=== PATIENT | male | born 1945 | race Caucasian/White ===

== ENCOUNTER 2016-05-01 16:22 | Emergency (ER) | payer MEDICARE ==
[2016-05-01] MEDS ORDERED: ALBUTEROL NEB 2.5 MG/3 ML VIAL.NEB NEB ONE (16:56)
[2016-05-01] MEDS ORDERED: SODIUM CHLORIDE 0.9% 500 ML ONE (17:05)
--- NOTE | 2016-05-01 17:35 | RAD ---
EXAMINATION:CHEST - 2 VIEWS CLINICAL INDICATION: Fever and shortness of breath. COMPARISON: Prior examination dated 02/03/2014. FINDINGS: The cardiomediastinal silhouette is unaltered from the prior examination. Aortic ectasia is similar. Volume loss with relative right mediastinal shift is again noted. There is no adenopathy identified. There is no pleural effusion. Coarsened reticular nodular opacities within the right upper lung zone and left midlung zone are similar. No superimposed acute infiltrate is identified. The osseous structures are unremarkable for age. IMPRESSION: Stable fibrotic changes of the lungs bilaterally with no superimposed acute process identified.
[2016-05-01 17:36] LABS: ALBUMIN 3.9 gm/dL (3.5-5.7); CALCIUM 9.1 mg/dL (8.6-10.3); MAGNESIUM 1.9 mg/dL (1.9-2.7)
[2016-05-01 17:37] LABS: ABSOLUTE NEUTROPHIL COUNT 7.5 K/mm3 (1.8-7.7); BASO # 0.1 K/mm3 (0.0-0.2); BASO % 0.6 % (0.2-1.0); EOS % 0.3 % (0.9-2.9); HEMATOCRIT 38.6 % (32.0-52.0); HEMOGLOBIN 13.1 gm/l (14.0-18.0); IMM NEUT% 0.3 % (0-1); LYMPH # 0.8 (1.0-4.8); LYMPH % 8.2 % (15-45); MEAN CELL VOLUME 85.4 fl (80.0-94.0); MEAN CORPUSCULAR HGB CONC 33.9 g/dl (33.0-37.0); MEAN PLATELET VOLUME 11.5 fl (7.4-10.4); MONO # 1.2 (0.0-0.8); MONO % 12.8 % (4-12); NEUT % 77.8 % (43-75); PLATELET COUNT 246 K/mm3 (130-400); RED CELL DISTRIBUTION WIDTH 14.7 % (11.5-14.5)
[2016-05-01 17:56] LABS: D-DIMER 0.48 mg/L FEU (0.20-0.50); INR 2.07; PROTHROMBIN TIME 22.6 SECONDS (9.3-11.4)
[2016-05-01 17:57] LABS: CKMB ISOENZYME 1.3 ng/ml (0.6-6.3)
[2016-05-01 17:59] LABS: TROPONIN I 0.09 ng/ml (0.0-0.06)
[2016-05-01 18:58] LABS: SPECIFIC GRAVITY 1.015 (1.001-1.030); URINE BILIRUBIN NEGATIVE (NEGATIVE); URINE BLOOD 4+ (NEGATIVE); URINE GLUCOSE (UA) NEGATIVE (NEGATIVE); URINE LEUKOCYTE ESTERASE TRACE (NEGATIVE); URINE NITRITE NEGATIVE (NEGATIVE); URINE PROTEIN 2+ (NEGATIVE); URINE UROBILINOGEN 1 mg/dL (0-1 mg/dl)
[2016-05-01] MEDS ORDERED: CEFTRIAXONE 1 GRAM DUPLEX 50 ML IV ONE ×2 (19:02→19:04)
[2016-05-01 19:08] LABS: URINE APPEARANCE CLOUDY; URINE COLOR BROWN
[2016-05-01 19:14] LABS: URINE RBC 20-30 /hpf
[2016-05-01 19:15] LABS: URINE AMORPHOUS SEDIMENT MODERATE; URINE BACTERIA 1+
== END 2016-05-01 20:04 | disposition short-term general hospital (02) ==
LOC: ED 16:22
DX: R09.02 Hypoxemia (principal); R50.9 Fever, unspecified; I12.0 Hypertensive chronic kidney disease with stage 5 chronic kidney disease or end stage renal disease; N18.6 End stage renal disease; Z99.2 Dependence on renal dialysis
CPT/HCPCS: 83605; 83690; 85379; 85025; 82550; 82553; 87070; 87040 ×2; 87086; 80053; 83735; 85610; 84484; 81001; 71020; 94640; 99285 ×2; 96374; 36415; 93005; J7040; J0696 ×2